=== PATIENT | male | born 1980 | race Two or more races ===

== ENCOUNTER 2023-08-27 14:03 | Emergency (ER) | payer SELFPAY ==
[~2023-08-27] VITALS: Ht 170.2 cm; Wt 68.0 kg
[2023-08-27] VITALS (7 sets, daily range): BP systolic 163–182; BP diastolic 85–100
[2023-08-27 14:53] LABS: BASO% 0.4 % (0-3); EOS% 1.2 % (0-8); HEMOGLOBIN 15.2 g/dl (14.0-18.0); IMMATURE GRANULOCYTES 0.1 % (0.0-5.0); LYMPH% 29.8 % (15-41); MEAN CELL VOLUME 85.5 fL CALC (80.0-100.0); MEAN CORPUSCULAR HGB 30.2 pG CALC (26.0-32.0); MEAN CORPUSCULAR HGB CONC 35.3 g/dL CAL (32.0-36.0); MONO% 7.2 % (2-13); NEUT# 4.69 thou/uL (1.82-7.42); NEUT% 61.3 % (42-76); RED BLOOD COUNT 5.03 mill/uL (4.70-6.10); RED CELL DISTRI WIDTH 11.6 % (11.5-15.5)
[2023-08-27 14:55] LABS: URINE BILIRUBIN - DIPSTICK Negative (NEGATIVE); URINE BLOOD DIPSTICK Trace-intact (NEGATIVE); URINE GLUCOSE - DIPSTICK >=1000 mg/dL (NEGATIVE); URINE KETONE Negative (NEGATIVE); URINE LEUK ESTERASE Negative (NEGATIVE); URINE NITRITE - DIPSTICK Negative (Negative); URINE PH 7.5 (4.5-8.0); URINE PROTEIN - DIPSTICK 30 mg/dL (NEG-TRACE); URINE UROBILINOGEN - DIPSTICK 0.2 E.U./dL (0.2)
[2023-08-27 14:57] LABS: URINE COLOR Yellow
[2023-08-27 15:07] LABS: URINE RBC 0-2 RBC/hpf (0-5); URINE SQUAMOUS EPITHELIAL CELL FEW EPI/hpf (0-FEW)
[2023-08-27 15:28] LABS: ALBUMIN 4.7 g/dL (3.2-5.0); ALKALINE PHOSPHATASE 102 u/l (38-126); ANION GAP 17 (6-22 (CALC)); BILIRUBIN, TOTAL 0.8 mg/dL (0.2-1.3); BUN 14 mg/dL (9-20); BUN/CREATININE RATIO 22 (12-20 (CALC)); CARBON DIOXIDE 25 mmol/l (22-30); CHLORIDE 99 mmol/l (95-108); CREATININE 0.6 mg/dL (0.7-1.3); GFR FOR AFR.AMER. > 60 ML/MIN (>=60 (CALC)); GFR OTHER RACES > 60 ML/MIN (>=60 (CALC)); POTASSIUM 3.9 mmol/l (3.5-5.1); SGOT/AST 37 u/l (17-59); SODIUM 136 mmol/l (137-146)
[2023-08-27] MEDS ORDERED: MELOXICAM15 MG PO (16:44)
[2023-08-27] MEDS ORDERED: LOSARTAN POTASS50 MG PO (16:44)
[2023-08-27] MEDS ORDERED: METFORMIN HCL1000 MG PO (16:44)
[2023-08-28] MEDS ORDERED: TRAMADOL HCL50 MG PO (21:20)
[2023-08-28] MEDS ORDERED: ORPHENADRINE100 MG PO (21:20)
== END 2023-08-27 17:04 | disposition home or self-care (01) | DRG 552 ==
LOC: ED 14:03
PROVIDERS: Nurse Practitioner Family
DX: M54.89 Other dorsalgia (principal); E11.9 Type 2 diabetes mellitus without complications; I10 Essential (primary) hypertension; K59.00 Constipation, unspecified

== ENCOUNTER 2023-08-28 16:10 | Emergency (ER) | payer SELFPAY ==
[~2023-08-28] VITALS: Ht 170.2 cm; Wt 66.0 kg
[2023-08-28] VITALS (11 sets, daily range): BP systolic 124–163; BP diastolic 73–96
[~2023-08-28 16:10] MED LIST: LOSARTAN POTASS50 MG PO; MELOXICAM15 MG PO; METFORMIN HCL1000 MG PO
[2023-08-28] MEDS ORDERED: ORPHENADRINE100 MG PO (21:20)
[2023-08-28] MEDS ORDERED: TRAMADOL HCL50 MG PO (21:20)
== END 2023-08-28 21:38 | disposition home or self-care (01) | DRG 563 ==
LOC: ED 16:10
DX: S39.012A Strain of muscle, fascia and tendon of lower back, initial encounter (principal); E11.9 Type 2 diabetes mellitus without complications; X58.XXXA Exposure to other specified factors, initial encounter; Z79.84 Long term (current) use of oral hypoglycemic drugs